=== PATIENT | male | born 1995 | race Caucasian/White ===

== ENCOUNTER 2020-08-01 07:12 | Emergency (ER) | payer MEDICAID ==
[~2020-08-01] VITALS: Ht 167.6 cm; Wt 55.3 kg
[2020-08-01 07:19] VITALS: Ht 167.6 cm; Wt 55.3 kg
[2020-08-01 09:09] VITALS: BP 130/69
== END 2020-08-01 09:09 | disposition home or self-care (01) ==
LOC: ED 07:12
DX: S61.411A Laceration without foreign body of right hand, initial encounter (principal); W22.8XXA Striking against or struck by other objects, initial encounter; Y93.89 Activity, other specified; Y92.89 Other specified places as the place of occurrence of the external cause; Y99.8 Other external cause status
CPT/HCPCS: 90715; J2001; Q0092

== ENCOUNTER 2020-09-09 18:48 | Emergency (ER) | payer MEDICAID ==
[~2020-09-09] VITALS: Ht 170.2 cm; Wt 59.4 kg
[2020-09-09 19:17] VITALS: Ht 170.2 cm; Wt 59.4 kg
[2020-09-09 20:20] VITALS: BP 116/61
== END 2020-09-09 20:20 | disposition home or self-care (01) ==
LOC: ED 18:48
DX: S61.411D Laceration without foreign body of right hand, subsequent encounter (principal); X58.XXXD Exposure to other specified factors, subsequent encounter
CPT/HCPCS: J7030